=== PATIENT | female | born 1975 | race African-American/Black ===

== ENCOUNTER 2020-11-12 21:29 | Emergency (ER) | payer OTHER, BC ==
[2020-11-12 21:41] VITALS: BP 143/85
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
== END 2020-11-12 22:59 | disposition home or self-care (01) ==
LOC: ER 21:29
DX: M54.5 Low back pain (principal); V49.40XA Driver injured in collision with unspecified motor vehicles in traffic accident, initial encounter; G35 Multiple sclerosis
CPT/HCPCS: 99283